=== PATIENT | female | born 1955 | race Asian ===

== ENCOUNTER 2018-08-13 13:44 | Inpatient (IN) | payer OTHER ==
[2018-08-13 14:35] VITALS: BMI 17.6
--- NOTE | 2018-08-13 17:17 | HP ---
CIWA Score - Admission Criteria [facility]ASAS Guidelines: Admission for Medically Managed Detox: Requires at least one of the followin. CIWA greater than 12 2. Seizures within the past 24 hours 3. Delirium tremens within the past 24 hours 4. Hallucinations within the past 24 hours 5. Acute intervention needed for co occurring medical disorder 6. Acute intervention needed for co occurring psychiatric disorder 7. Severe withdrawal that cannot be handled at a lower level of care (continued vomiting, continued diarrhea, abnormal vital signs) requiring intravenous medication and/or fluids 8. Admission ROS [facility]HS - HPI Chief Complaint: Pt is here for rehab from crack. Pt with bipolar - manic Says she is using very little crack cocaine. Had random urine check at her residence- and was sent to [facility] b/c pos tox screen for cocaine. Pt was at [facility] for 2 weeks from 07/30-08/13. Pt transferred here for rehab. MH- [facility] meds- [facility] d/c summary gives- Lamictal, cogentin, lithium , midodrine, but pt states she is on lithium, trazodone, abilify, wellbutrin DUR- neg Utox- neg Allergies/Adverse Reactions: Allergies Allergy/AdvReac Type Severity Reaction Status Date / Time No Known Allergies Allergy Verified 08/13/18 17:32 Exam Limitations: No Limitations - Ebola screening Have you traveled outside of the country in the last 21 days: No Have you had contact with anyone from an Ebola affected area: No Have you been sick,other than usual withdrawal symptoms: No Do you have a fever: No - Review of Systems Constitutional: No Symptoms Reported EENT: reports: No Symptoms Reported Respiratory: reports: No Symptoms reported Cardiac: reports: No Symptoms Reported GI: reports: No Symptoms Reported : reports: No Symptoms Reported Musculoskeletal: reports: No Symptoms Reported Integumentary: reports: No Symptoms Reported Neuro: reports: No Symptoms reported Endocrine: reports: No Symptoms Reported Hematology: reports: No Symptoms Reported Psychiatric: reports: No Sypmtoms Reported Other Systems: Reviewed and Negative Patient History - Patient Medical History Hx Depression: Yes (wellbutrin,lithium, abilify, trazodone) - Patient Surgical History Past Surgical History: No - Smoking Cessation Smoking history: Current some day smoker Have you smoked in the past 12 months: Yes Aproximately how many cigarettes per day: 10 Hx Chewing Tobacco Use: No Initiated information on smoking cessation: Yes 'Breaking Loose' booklet given: 08/13/18 - Substance & Tx. History Hx Alcohol Use: No Hx Substance Use: Yes Substance Use Type: Cocaine Family Disease History - Family Disease History Family History: Denies Admission Physical Exam BHS - Vital Signs Vital Signs: Vital Signs - 24 hr 08/13/18 14:33 Temperature 97.3 F L Pulse Rate 60 Respiratory 18 Rate Blood Pressure 92/62 - Physical General Appearance: Yes: Within Normal Limits HEENTM: Yes: Within Normal Limits Respiratory: Yes: Within Normal Limits Neck: Yes: Within Normal Limits Cardiology: Yes: Within Normal Limits, Regular Rate, S1, S2 Abdominal: Yes: Within Normal Limits Back: Yes: Within Normal Limits Musculoskeletal: Yes: Within Normal Limits Extremities: Yes: Within Normal Limits Neurological: Yes: Within Normal Limits Integumentary: Yes: Within Normal Limits Lymphatic: Yes: Within Normal Limits - Diagnostic (1) Cocaine use disorder Current Visit: Yes Status: Acute (2) Tobacco use disorder Current Visit: Yes Status: Acute (3) Bipolar 1 disorder, depressed Current Visit: Yes Status: Acute (4) Bipolar 1 disorder with moderate yana Current Visit: Yes Status: Acute BHS Breath Alcohol Content Breath Alcohol Content: 0 Urine Pregancy Test - Result Urine Test Results: Negative- NO Line Present Urine Drug Screen - Results Drug Screen Negative: Yes Inpatient Rehab Admission - Initial Determination Are CD services needed?: Yes Free of communicable disease: Yes Not in need of hospitalization: Yes - Rehab Admission Criteria Previous failed treatment: Yes Poor recovery environment: Yes Comorbidities: Yes Lacks judgement: No Patient is meeting Inpatient Rehab admission criteria:: Yes (pt transferred here from [facility])
[2018-08-13] MEDS ORDERED: guaiFENesin/D-METHORPHAN HB 10 ML UNIT-DOSE CUPS PO PRN (17:32)
[2018-08-13] MEDS ORDERED: MENTHOL/PHENOL 1 EACH UD MM PRN (17:32)
[2018-08-13] MEDS ORDERED: MAGNESIUM CITRATE 300 ML BOTTLE PO PRN (17:32)
[2018-08-13] MEDS ORDERED: NICOTINE POLACRILEX 4 MG GUM BC PRN (17:32)
[2018-08-13] MEDS ORDERED: ACETAMINOPHEN 325 MG TABLET (FP) PO PRN (17:32)
[2018-08-13] MEDS ORDERED: IBUPROFEN 400 MG TABLET (FP) PO PRN (17:32)
[2018-08-13] MEDS ORDERED: MAGNESIUM HYDROX 2400MG/30ML ORAL SUSPENSION 30 ML CUP PO PRN (17:32)
[2018-08-13] MEDS ORDERED: P-EPHED 60MG/TRIPROLIDI 2.5MG TABLET PO PRN (17:32)
[2018-08-13] MEDS ORDERED: LOPERAMIDE HCL 2 MG CAPSULE PO PRN (17:32)
[2018-08-13] MEDS ORDERED: MELATONIN 5 MG TABLETS PO PRN (22:00)
[2018-08-13] MEDS: THIAMINE HCL 100 MG TABLET (FP) PO SCH (22:03)
[2018-08-14] MEDS: PRENATAL VITAMINS W/ FOLIC ACID TABLET (FP) PO SCH (09:44)
[2018-08-14 12:25] LABS: HEMATOCRIT 39.2 % (32.4-45.2); MCHC 33.2 g/dl (32.0-36.0); MEAN CELL VOLUME 96.3 fl (80-96); MEAN PLT VOLUME 8.8 fl (7.5-11.1); PLATELET COUNT 100 K/MM3 (134-434); RBC 4.07 M/mm3 (3.60-5.2); RDW 14.3 % (11.6-15.6); WHITE BLOOD COUNT 4.8 K/mm3 (4.0-10.0)
[2018-08-14 12:32] LABS: ALBUMIN 3.2 g/dl (3.4-5.0); ALK PHOS 184 U/L (45-117); ANION GAP 8 MMOL/L (8-16); BILIRUBIN,TOTAL 0.4 mg/dL (0.2-1); BLOOD UREA NITROGEN 18 mg/dL (7-18); CALCIUM 8.7 mg/dL (8.5-10.1); CHLORIDE 108 mmol/L (98-107); CO2 26 mmol/L (21-32); CREATININE 0.7 mg/dL (0.55-1.3); GLUCOSE,RANDOM 137 mg/dL (74-106); POTASSIUM 3.8 mmol/L (3.5-5.1); SGOT/AST 76 U/L (15-37); SGPT/ALT 113 U/L (13-61); SODIUM 142 mmol/L (136-145); TOT PROT 6.9 g/dl (6.4-8.2)
--- NOTE | 2018-08-14 13:13 | PN ---
[facility] Progress Note Note: TEST REVIEWS: CXR: CLEAR LUNGS PACEMAKER. PREVIOUS KYPHOPLASTY. NO ACUTE CHEST PATHOLOGY. EKG DONE ON ADMISSION AND REPEATED EKG UNCHANGED. ATRIAL-PACED RHYTHM P 60 QT 446
[2018-08-14 15:40] LABS: URINE APPEARANCE CLOUDY; URINE BILIRUBIN NEGATIVE (<2.0 mg/dL); URINE COLOR DKYELLOW; URINE GLUCOSE (UA) NEGATIVE (NEGATIVE); URINE KETONE NEGATIVE (NEGATIVE); URINE LEUK ESTERASE 2+ (NEGATIVE); URINE NITRITE POSITIVE (NEGATIVE); URINE PROTEIN NEGATIVE (NEGATIVE)
[2018-08-14 15:46] LABS: EPI CELLS FEW /HPF (FEW); URINE BACTERIA RARE /hpf (NONE SEEN); URINE MUCUS RARE
--- NOTE | 2018-08-14 15:51 | EKG ---
Test Reason : Blood Pressure : / mmHG Vent. Rate : 060 BPM Atrial Rate : 060 BPM P-R Int : 152 ms QRS Dur : 080 ms QT Int : 446 ms P-R-T Axes : 058 067 057 degrees QTc Int : 446 ms Atrial-paced rhythm ABNORMAL ECG WHEN COMPARED WITH ECG OF 13-AUG-2018 23:23, NO SIGNIFICANT CHANGE WAS FOUND Confirmed by Agus Noe ([id number]) on 08/14/2018 3:51:24 PM Referred By: Confirmed By:Agus Noe
--- NOTE | 2018-08-14 15:51 | EKG ---
Test Reason : Blood Pressure : / mmHG Vent. Rate : 060 BPM Atrial Rate : 060 BPM P-R Int : 164 ms QRS Dur : 072 ms QT Int : 446 ms P-R-T Axes : 063 066 045 degrees QTc Int : 446 ms Atrial-paced rhythm ABNORMAL ECG NO PREVIOUS ECGS AVAILABLE Confirmed by Agus Noe ([id number]) on 08/14/2018 3:51:27 PM Referred By: Confirmed By:Agus Noe
[2018-08-14] MEDS: THIAMINE HCL 100 MG TABLET (FP) PO SCH (21:11)
--- NOTE | 2018-08-14 22:00 | PN ---
[facility] Progress Note Note: Psychiatrist operations officer afloat: As per nursing report patient started on preadmission medications: Wellbutrin XL 300mg poqd
[2018-08-15] MEDS: PRENATAL VITAMINS W/ FOLIC ACID TABLET (FP) PO SCH (09:44)
--- NOTE | 2018-08-15 12:44 | CONSULT ---
[facility] Psychiatric Consult - Data Date of interview: 08/15/18 Admission source: [facility] Identifying data: This is the first admission to [address] [place] [address] for this 63 years old female Psychiatric Findings - Problem List ([place] 1, 2,3) (1) Bipolar 1 disorder, depressed Current Visit: Yes Status: Chronic (2) Cocaine use disorder Current Visit: Yes Status: Chronic (3) Tobacco use disorder Current Visit: Yes Status: Chronic - Initial Treatment Plan Initial Treatment Plan: Will monitor progress.
--- NOTE | 2018-08-15 15:02 | CONSULT ---
[facility] Psychiatric Consult - Data Date of interview: 08/15/18 Admission source: [facility] Identifying data: This is 63 years old corean female mother of 2 grown sons,residing in Supportive housing,on SSI. Substance Abuse History: Patient started using crack about 3 years ago,once a week ,spending about $40 . Medical History: Significant for Hypothyroidism. Psychiatric History: Patient reports first contact with psychiatrist was at 27 years old when she was admitted to one of the hospitals in [place] due to severe depression,suicidal attempt(DOD).She was dx with Major Depressive Disorder.She reports 8-10 more psychiatric hospitalizatiosn.She was dx with Bipolar disorder.patient sees her PCP at [facility] for her psychotropic medications.She is on wellbutrin XL 300 mg po daily and Abilify 15 mg po hs, Trazodone 200 mg po hs. Physical/Sexual Abuse/Trauma History: denies Mental Status Exam - Mental Status Exam Alert and Oriented to: Time, Place, Person Cognitive Function: Grossly Intact Patient Appearance: Unkempt Mood: Sad Affect: Mood Congruent, Labile Patient Behavior: Cooperative Speech Pattern: Clear Voice Loudness: Normal Thought Process: Goal Oriented Thought Disorder: Not Present Hallucinations: Denies Suicidal Ideation: Denies Homicidal Ideation: Denies Insight/Judgement: Fair Sleep: Difficulty falling asleep Appetite: Fair Muscle strength/Tone: Normal Gait/Station: Normal Psychiatric Findings - Problem List ([place] 1, 2,3) (1) Bipolar 1 disorder, depressed Current Visit: Yes Status: Chronic (2) Cocaine use disorder Current Visit: Yes Status: Chronic (3) Tobacco use disorder Current Visit: Yes Status: Chronic - Initial Treatment Plan Initial Treatment Plan: Continue Wellbutrin XL 300 mg po daily,Trazodone 150 mg po hs and Abilify 15 mg po daily. Will monitor porgress.
[2018-08-15] MEDS: ARIPiprazole 15 MG TABLET PO SCH (16:20)
[2018-08-15] MEDS: THIAMINE HCL 100 MG TABLET (FP) PO SCH (21:09)
[2018-08-15] MEDS: traZODone HCL 50 MG TABLET (FP) PO SCH (21:10)
[2018-08-16] MEDS: PRENATAL VITAMINS W/ FOLIC ACID TABLET (FP) PO SCH (09:40)
[2018-08-16] MEDS: ARIPiprazole 15 MG TABLET PO SCH (09:40)
[2018-08-16] MEDS: THIAMINE HCL 100 MG TABLET (FP) PO SCH (21:40)
[2018-08-16] MEDS: traZODone HCL 50 MG TABLET (FP) PO SCH (21:40)
--- NOTE | 2018-08-17 09:15 | PN ---
S Progress Note Note: PT C/O EYE DISCHARGE FOR SOME DAYS EACH TIME SHE WAKES UP. Vital Signs 08/17/18 07:38 Temperature 97.5 F L Pulse Rate 60 Respiratory 18 Rate Blood Pressure 98/61 EYES:NO DISCHARGE SEEN AT EXAM TIME PT SAYS SHE CLEANS IT. CONJUCTIVA NO REDNESS. PLAN:ERYTHROMYCIN EYE OINTMENT DIRECTED.
[2018-08-17] MEDS: PRENATAL VITAMINS W/ FOLIC ACID TABLET (FP) PO SCH (09:39)
[2018-08-17] MEDS: ARIPiprazole 15 MG TABLET PO SCH (09:39)
[2018-08-17] MEDS: MAG HYDROX/AL HYDROX/SIMETH 30 ML UNIT-DOSE CUP PO PRN (09:41)
[2018-08-17] MEDS: ERYTHROMYCIN 0.5% OPHTHALMIC OINTMENT 3.5 GM TUBE OU SCH (11:17)
[2018-08-17] MEDS: traZODone HCL 50 MG TABLET (FP) PO SCH (21:44)
[2018-08-17] MEDS: THIAMINE HCL 100 MG TABLET (FP) PO SCH (21:44)
[2018-08-18] MEDS: LEVOTHYROXINE NA 25 MCG TABLET (FP) PO SCH (07:43)
[2018-08-18] MEDS: PRENATAL VITAMINS W/ FOLIC ACID TABLET (FP) PO SCH (09:59)
[2018-08-18] MEDS: ARIPiprazole 15 MG TABLET PO SCH (10:00)
[2018-08-18] MEDS: ERYTHROMYCIN 0.5% OPHTHALMIC OINTMENT 3.5 GM TUBE OU SCH (10:01)
[2018-08-18] MEDS ORDERED: PT OWN MED DRAWER 7, Y5N ONE (10:01)
[2018-08-18] MEDS: traZODone HCL 50 MG TABLET (FP) PO SCH (21:25)
[2018-08-18] MEDS: THIAMINE HCL 100 MG TABLET (FP) PO SCH (21:25)
[2018-08-19] MEDS: LEVOTHYROXINE NA 25 MCG TABLET (FP) PO SCH (06:56)
[2018-08-19] MEDS: ARIPiprazole 15 MG TABLET PO SCH (09:49)
[2018-08-19] MEDS: PRENATAL VITAMINS W/ FOLIC ACID TABLET (FP) PO SCH (09:49)
[2018-08-19] MEDS: ERYTHROMYCIN 0.5% OPHTHALMIC OINTMENT 3.5 GM TUBE OU SCH (09:50)
[2018-08-19] MEDS: THIAMINE HCL 100 MG TABLET (FP) PO SCH (21:36)
[2018-08-19] MEDS: traZODone HCL 50 MG TABLET (FP) PO SCH (21:36)
[2018-08-19] MEDS: MAG HYDROX/AL HYDROX/SIMETH 30 ML UNIT-DOSE CUP PO PRN (21:37)
[2018-08-20] MEDS: LEVOTHYROXINE NA 25 MCG TABLET (FP) PO SCH (06:36)
[2018-08-20] MEDS ORDERED: PT OWN MED DRAWER 7, Y5N ONE (08:54)
[2018-08-20] MEDS: ERYTHROMYCIN 0.5% OPHTHALMIC OINTMENT 3.5 GM TUBE OU SCH (10:00)
[2018-08-20] MEDS: PRENATAL VITAMINS W/ FOLIC ACID TABLET (FP) PO SCH (10:00)
[2018-08-20] MEDS: ARIPiprazole 15 MG TABLET PO SCH (10:00)
[2018-08-20] MEDS: THIAMINE HCL 100 MG TABLET (FP) PO SCH (21:42)
[2018-08-20] MEDS: traZODone HCL 50 MG TABLET (FP) PO SCH (21:42)
[2018-08-21] MEDS: LEVOTHYROXINE NA 25 MCG TABLET (FP) PO SCH (06:38)
[2018-08-21] MEDS: ARIPiprazole 15 MG TABLET PO SCH (09:57)
[2018-08-21] MEDS: ERYTHROMYCIN 0.5% OPHTHALMIC OINTMENT 3.5 GM TUBE OU SCH (09:57)
[2018-08-21] MEDS: PRENATAL VITAMINS W/ FOLIC ACID TABLET (FP) PO SCH (09:57)
[2018-08-21] MEDS: THIAMINE HCL 100 MG TABLET (FP) PO SCH (21:09)
[2018-08-21] MEDS: traZODone HCL 50 MG TABLET (FP) PO SCH (21:09)
[2018-08-22] MEDS: LEVOTHYROXINE NA 25 MCG TABLET (FP) PO SCH (06:28)
[2018-08-22] MEDS: PRENATAL VITAMINS W/ FOLIC ACID TABLET (FP) PO SCH (10:01)
[2018-08-22] MEDS: ARIPiprazole 15 MG TABLET PO SCH (10:01)
--- NOTE | 2018-08-22 10:43 | PN ---
[facility] Progress Note Note: C/O DRY EYES. DENIES CONTINUATION OF PREVIOUS SX. Vital Signs - 24 hr 08/22/18 08/22/18 08/22/18 00:30 03:30 08:33 Temperature 97.8 F Pulse Rate 60 Respiratory 16 16 16 Rate Blood Pressure 85/59 L EYES: CONJUNCTIVA WNL EOMI KEIKO PLAN:ARTIFICIAL TEARS DIRECTED
[2018-08-22] MEDS: ARTIFICIAL TEARS (POLYVINYL ALCOHOL) OPTH DROPS OU SCH ×2 (13:44→21:39)
[2018-08-22] MEDS: THIAMINE HCL 100 MG TABLET (FP) PO SCH (21:38)
[2018-08-22] MEDS: traZODone HCL 50 MG TABLET (FP) PO SCH (21:38)
[2018-08-23] MEDS: LEVOTHYROXINE NA 25 MCG TABLET (FP) PO SCH (06:39)
[2018-08-23] MEDS: ARTIFICIAL TEARS (POLYVINYL ALCOHOL) OPTH DROPS OU SCH ×3 (06:39→23:04)
[2018-08-23] MEDS: ARIPiprazole 15 MG TABLET PO SCH (10:14)
[2018-08-23] MEDS: PRENATAL VITAMINS W/ FOLIC ACID TABLET (FP) PO SCH (10:14)
[2018-08-23] MEDS ORDERED: PT OWN MED DRAWER 7, Y5N ONE (10:29)
[2018-08-23] MEDS: traZODone HCL 50 MG TABLET (FP) PO SCH (21:35)
[2018-08-23] MEDS: THIAMINE HCL 100 MG TABLET (FP) PO SCH (21:35)
[2018-08-24] MEDS: ARTIFICIAL TEARS (POLYVINYL ALCOHOL) OPTH DROPS OU SCH ×3 (06:30→21:42)
[2018-08-24] MEDS: LEVOTHYROXINE NA 25 MCG TABLET (FP) PO SCH (06:30)
[2018-08-24] MEDS: ARIPiprazole 15 MG TABLET PO SCH (09:58)
[2018-08-24] MEDS: PRENATAL VITAMINS W/ FOLIC ACID TABLET (FP) PO SCH (09:58)
[2018-08-24] MEDS ORDERED: PT OWN MED DRAWER 7, Y5N ONE (13:34)
[2018-08-24] MEDS: THIAMINE HCL 100 MG TABLET (FP) PO SCH (21:42)
[2018-08-24] MEDS: traZODone HCL 50 MG TABLET (FP) PO SCH (21:42)
[2018-08-25] MEDS: LEVOTHYROXINE NA 25 MCG TABLET (FP) PO SCH (06:18)
[2018-08-25] MEDS: ARTIFICIAL TEARS (POLYVINYL ALCOHOL) OPTH DROPS OU SCH ×3 (06:18→21:16)
[2018-08-25] MEDS ORDERED: PT OWN MED DRAWER 7, Y5N ONE ×2 (08:01→21:16)
[2018-08-25] MEDS: ARIPiprazole 15 MG TABLET PO SCH (10:00)
[2018-08-25] MEDS: PRENATAL VITAMINS W/ FOLIC ACID TABLET (FP) PO SCH (10:00)
[2018-08-25] MEDS: MAG HYDROX/AL HYDROX/SIMETH 30 ML UNIT-DOSE CUP PO PRN (19:15)
[2018-08-25] MEDS: traZODone HCL 50 MG TABLET (FP) PO SCH (21:14)
[2018-08-25] MEDS: THIAMINE HCL 100 MG TABLET (FP) PO SCH (21:14)
[2018-08-26] MEDS: LEVOTHYROXINE NA 25 MCG TABLET (FP) PO SCH (06:18)
[2018-08-26] MEDS: ARTIFICIAL TEARS (POLYVINYL ALCOHOL) OPTH DROPS OU SCH ×3 (06:19→21:29)
[2018-08-26] MEDS ORDERED: PT OWN MED DRAWER 7, Y5N ONE (07:52)
[2018-08-26] MEDS: ARIPiprazole 15 MG TABLET PO SCH (10:10)
[2018-08-26] MEDS: PRENATAL VITAMINS W/ FOLIC ACID TABLET (FP) PO SCH (10:10)
[2018-08-26] MEDS: traZODone HCL 50 MG TABLET (FP) PO SCH (21:28)
[2018-08-26] MEDS: THIAMINE HCL 100 MG TABLET (FP) PO SCH (21:29)
[2018-08-27] MEDS: LEVOTHYROXINE NA 25 MCG TABLET (FP) PO SCH (06:47)
[2018-08-27] MEDS: ARTIFICIAL TEARS (POLYVINYL ALCOHOL) OPTH DROPS OU SCH (06:48)
[2018-08-27 07:06] VITALS: BP 100/70; PULSE 61; TEMP 97.6
[2018-08-27] MEDS: ARIPiprazole 15 MG TABLET PO SCH (09:14)
[2018-08-27] MEDS: PRENATAL VITAMINS W/ FOLIC ACID TABLET (FP) PO SCH (09:14)
--- NOTE | 2018-08-27 09:47 | PN ---
Psychiatric Progress Note Vital Signs: Vital Signs Period Temp Pulse Resp BP Sys/Chandler Pulse Ox Last 24 Hr 97.6 F 61 16-18 100/70 Date of Session: 08/27/18 Chief Complaint:: Discharge visit HPI: patient addressed Cocaine dependence comorbid with Bipolar disorder. Current Medications: Active Medications Generic Name Dose Route Start Last Admin Trade Name Freq PRN Reason Stop Dose Admin Acetaminophen 650 mg 08/13/18 17:32 Tylenol - PO Q4H PRN FEVER Al Hydroxide/Mg Hydroxide 30 ml 08/13/18 17:32 08/25/18 19:15 Mylanta Oral Suspension - PO 30 ml Q6H PRN Administration DYSPEPSIA Aripiprazole 15 mg 08/15/18 15:35 08/27/18 09:14 Abilify PO 15 mg DAILY KRISTIN Administration Artificial Tears 1 drop 08/22/18 14:00 08/27/18 06:48 Artificial Tears OU 1 drop TID KRISTIN Administration Bupropion HCl 300 mg 08/15/18 10:00 08/27/18 09:14 Wellbutrin Xl - PO 300 mg DAILY KRISTIN Administration Eucalyptus/Menthol/Phenol/Sorbitol 1 each 08/13/18 17:32 Cepastat Lozenge - MM Q4H PRN SORE THROAT Guaifenesin 10 ml 08/13/18 17:32 Robitussin Dm - PO Q6H PRN COUGH Ibuprofen 400 mg 08/13/18 17:32 Motrin - PO Q6H PRN Pain level 4-6 Levothyroxine Sodium 50 mcg 08/18/18 07:30 08/27/18 06:47 Synthroid - PO 50 mcg DAILY@0700 KRISTIN Administration Loperamide HCl 4 mg 08/13/18 17:32 Imodium - PO Q6H PRN DIARRHEA Magnesium Citrate 300 ml 08/13/18 17:32 Citroma - PO Q48H PRN CONSTIPATION Magnesium Hydroxide 30 ml 08/13/18 17:32 Milk Of Magnesia - PO DAILY PRN CONSTIPATION Melatonin 5 mg 08/13/18 22:00 08/14/18 21:11 Melatonin PO 5 mg HS PRN Administration INSOMNIA Nicotine Polacrilex 4 mg 08/13/18 17:32 Nicorette Gum - BC Q2H PRN NICOTINE REPLACEMENT RX Multivit/Folic Acid/Iron 1 tab 08/14/18 10:00 08/27/18 09:14 Vitamins (Sjr) - PO 1 tab DAILY KRISTIN Administration Pseudoephedrine/Triprolidine 1 combo 08/13/18 17:32 Actifed - PO TID PRN NASAL CONGESTION Thiamine HCl 100 mg 08/13/18 22:00 08/26/18 21:29 Vitamin B1 - PO 100 mg HS KRISTIN Administration Trazodone HCl 150 mg 08/15/18 22:00 08/26/18 21:28 Desyrel - PO 150 mg HS KRISTIN Administration Current Side Effect: No Lab tests ordered: No Lab tests reviewed: Yes Provider note:: Patient comleted this program today.She has met her treatment goals and milla continue to address her issues on outpatient basis.Patient continues to find that current medications : Abilify 15 mg po daily,Wellbutrin 300 mg po am and Trazodone 150 mg poi hs help to cope with mood instability, depression ,anxiety.Scripts for 30 days provided. Supportive therapy provided focusing on relapse prevention. Patient is stable for discharge today. Mental Status Exam - Mental Status Exam Alert and Oriented to: Time, Place, Person Cognitive Function: Grossly Intact Patient Appearance: Well Groomed Mood: Euthymic Affect: Appropriate, Mood Congruent, Normal Range Patient Behavior: Cooperative Speech Pattern: Clear Voice Loudness: Normal Thought Process: Goal Oriented Thought Disorder: Not Present Hallucinations: Denies Suicidal Ideation: Denies Homicidal Ideation: Denies Insight/Judgement: Fair Sleep: Fair Appetite: Good Muscle strength/Tone: Normal Gait/Station: Spastic
--- NOTE | 2018-08-27 09:54 | PN ---
[facility] Progress Note Note: DISCHARGE NOTE; PATIENT FOR DISCHARGE TODAY FROM REHAB. PATIENT IS MEDICALLY STABLE AT THIS TIME AND DENIES SI/HI. PATIENT HAS REPEAT CMP PENDING BUT DOES NOT WANT TO STAY UNTIL RESULT AVAILABLE SHE STATES " I WANT TO GO HOME". PATIENT HAS SCHEDULED AFTERCARE AT [facility] AND STATES SHE WILL FOLLOW UP WITH PCP DR. MOSCOSO A WALK IN PATIENT TOMORROW AT PCP CLINIC. PATIENT ENCOURAGE TO FOLLOW UP WITH PCP TO REPEAT LAB WORK AND CONTINUE MEDICAL MANAGEMENT. PATIENT REPORTS SHE ACCOMPLISHED ALL REHAB GOALS AND ENCOURAGED TO CONTINUE WITH AFTERCARE TO PREVENT RELAPSE. MEDICAL MEDICATION SENT TO PREFERRED PHARMACY.
[2018-08-27 10:15] LABS: ALBUMIN 3.6 g/dl (3.4-5.0); ALK PHOS 188 U/L (45-117); ANION GAP 7 MMOL/L (8-16); BILIRUBIN,TOTAL 0.5 mg/dL (0.2-1); BLOOD UREA NITROGEN 24 mg/dL (7-18); CALCIUM 8.9 mg/dL (8.5-10.1); CHLORIDE 103 mmol/L (98-107); CO2 27 mmol/L (21-32); CREATININE 0.8 mg/dL (0.55-1.3); GLUCOSE,RANDOM 145 mg/dL (74-106); SGOT/AST 65 U/L (15-37); SGPT/ALT 113 U/L (13-61); SODIUM 138 mmol/L (136-145); TOT PROT 7.7 g/dl (6.4-8.2)
== END 2018-08-27 10:12 | disposition home or self-care (01) | DRG 774 ==
LOC: YASAS 13:44 → Y3E 17:32
PROVIDERS: ADMIT Psychiatry & Neurology Psychiatry; ATTEND Psychiatry & Neurology Psychiatry
PROC: HZ42ZZZ Group Counseling for Substance Abuse Treatment, Cognitive-Behavioral (ICD-10-PCS; principal; 2018-08-13)
DX: F14.90 Cocaine use, unspecified, uncomplicated (principal); F17.210 Nicotine dependence, cigarettes, uncomplicated; F31.89 Other bipolar disorder; E03.9 Hypothyroidism, unspecified; H04.129 Dry eye syndrome of unspecified lacrimal gland; Z95.0 Presence of cardiac pacemaker
CPT/HCPCS: 36415; 71046-TC-FY; 80053; 81003; 81015; 82962; 85027; 86593; 93005; 93010